=== PATIENT | female | born 1965 | race Caucasian/White ===

== ENCOUNTER → 2023-06-07 11:00 | Outpatient (REF) | payer OTHER, SELFPAY | LOC: PAVMRI 11:00 | PROVIDERS: ATTENDING PHYSICIAN Orthopaedic Surgery; FAMILY PHYSICIAN Family Medicine | DX: M25.551 Pain in right hip (principal) | CPT/HCPCS: 72070; 72100 ==

== ENCOUNTER 2024-02-08 16:02 | Emergency (ER) | payer OTHER, SELFPAY ==
--- NOTE | 2024-02-08 16:57 | ED.GENMED ---
History of Present Illness
General
Chief Complaint: Prescription Refill
Source: patient
Time Seen by Provider: 02/08/24 16:32
History of Present Illness
History of Present Illness:
58-year-old female who presents because she ran out of her diazepam. She saw her pain management physician who writes her pain medications and who also advised her primary doctor to refill her benzodiazepines. She states this is the routine that
they have or her primary care doctor writes for diazepam and the plate painter raise her narcotics. She states she has been doing this for 7 years but for some reason the primary doctor did not send in the prescription. The insurance
company and the pain medicine specialist were working to try to get it but they could not get the prescription and she has missed the last 3 doses. She states that she is confident she will get it filled on Saturday and just needs to be held over.
She is complaining of muscle spasm.
Past History
Past History
ED Past Medical History: Other (Seasonal allergies) and Other (chronic back pain)
Social History
Tobacco: Non-smoker
Living: with family
Phy Exam
Physical Exam
Physical Exam:
CONSTITUTIONAL Vital signs reviewed, Patient alert and oriented to person, place and time. Well-appearing
HEAD atraumatic, normocephalic.
EYES eyelids normal to inspection, Extraocular muscles intact, Conjunctiva normal, Sclera normal.
NECK normal range of motion, Trachea midline, no jugular venous distention.
RESP no respiratory distress
BACK No obvious deformities
UPPER EXTREMITY Gross Range of motion normal, gross motor strength normal
LOWER EXTREMITY Gross range of motion normal, Gross motor strength normal
NEURO Speech normal, No focal motor deficits include, [place] coma scale 15, Memory normal, Cranial Nerves intact to screening exam.
SKIN Skin warm, dry, and normal in color.
PSYCHIATRIC Patient oriented to person place and time, Normal affect.
Course
Orders/Labs/Results
Orders:
Orders
02/08/24 16:55
Diazepam [Valium] 5 mg PO NOW STA
Vital Signs
Initial and Last Documented VS:
Initial Vital Signs
Temp Pulse Resp Pulse Ox
97.9 F 90 18 95
02/08/24 16:06 02/08/24 16:06 02/08/24 16:06 02/08/24 16:06
Last Documented Vital Signs
Temp Pulse Resp Pulse Ox
97.9 F 90 18 95
02/08/24 16:06 02/08/24 16:06 02/08/24 16:06 02/08/24 16:06
MDM/Problems Addressed
MDM/Problems Addressed:
Chronic pain, chronic benzodiazepine dependence, acute mild benzodiazepine withdrawal
*Pulse Oximetry
Patient hypoxic: no
*Critical Care Note
Total Time (30-74mins, 75-104mins- exclusive of procedures): Not Applicable
Data Reviewed
Source: patient
Patient Management
Escalation/DeEscalation of care consider admission/obs:
PDMP reviewed. She has been very steady with her medication refills until this refill. I do feel it is safe to refill her until Saturday only.
ED Attending Note
-
Portions of this chart may have been created with voice recognition software.� Occasional wrong word or��sound alike� substitutions may have occurred due to the inherent limitations of voice recognition software.
Discharge Plan
Departure
Patient Disposition: Home (Routine Discharge)
Date of Disposition: 02/08/24
Time of Disposition: 17:06
Patient with high blood pressure during this ER visit?: Yes
Discharge Problem:
Muscle spasm, Chronic prescription benzodiazepine use
Instructions: BLOOD PRESSURE
Prescriptions:
New
diazepam 5 mg tablet
5 mg PO TID Qty: 8 0RF
No Action
gabapentin 600 mg Tablet
600 mg PO TID
polyethylene glycol 3350 [Miralax] 17 gram Powder In Packet
17 g PO DAILY
acetaminophen 500 mg Tablet
1,000 mg PO TID
diazepam 5 mg Tablet
5 mg PO TID
oxycodone 10 mg Tablet
10 mg PO TID
insulin degludec [Tresiba FlexTouch U-200] 200 unit/mL (3 mL) Insulin Pen
32 unit SC HS
Jardiance 25 mg Tablet
25 mg PO DAILY
cephalexin 500 mg capsule
500 mg PO BID 5 Days Qty: 10 0RF
Activity Restrictions/Additional Instructions:
It is imperative that you follow-up with your doctor for further medication refills, as discussed.
Interventions
Interventions:
*Risk Screen - Suicide Last Done: 02/08/24 16:06
*General Assessment Last Done: 02/08/24 16:06
*Neglect/Abuse Screening Last Done: 02/08/24 16:06
*ED COVID-19 Vaccine History Last Done: 02/08/24 16:06
Discharge Date and Time
Print Language: BENGALI
[2024-02-08] MEDS: VALIUM 5 MG PO (17:08)
[2024-02-08 17:10] VITALS: BP 124/87
== END 2024-02-08 17:24 | disposition home or self-care (01) ==
LOC: EMR 16:02
PROVIDERS: EMERGENCY PHYSICIAN Emergency Medicine; FAMILY PHYSICIAN Family Medicine
DX: M62.838 Other muscle spasm (principal); Z79.899 Other long term (current) drug therapy; G89.29 Other chronic pain; F13.239 Sedative, hypnotic or anxiolytic dependence with withdrawal, unspecified
CPT/HCPCS: 99282

== ENCOUNTER 2024-11-07 20:28 | Emergency (ER) | payer SELFPAY ==
[2024-11-07 20:42] VITALS: BP 184/108
[2024-11-07 21:34] VITALS: BMI 41.2
[2024-11-07 21:35] VITALS: BP 148/92
--- NOTE | 2024-11-07 21:38 | EDRN ---
when this [employer] asked the pt why she is here in the ER tonight, the pt stated 'my friend who I live with said tonight I am more stressed than normal because I have not been taking my oxycodone and he thought I needed to be evaluated.' the pt stated
'if he had not made me come to the ER tonight, I would not be here right now.' the pt stated her oxycodone prescription is due to be refilled tomorrow morning. the pt stated she last had her oxycodone 2 days ago.
--- NOTE | 2024-11-07 22:38 | ED.GENMED ---
History of Present Illness
General
Chief Complaint: Back Pain
Time Seen by Provider: 11/07/24 21:49
History of Present Illness
History of Present Illness:
59-year-old female with history of chronic back pain presenting to the emergency department because she ran out of her oxycodone. Patient reports that she has a refill for the morning time, however ran out 2 days ago of her oxycodone which she
takes twice daily. She has been taking the oxycodone for right upper back pain. She is currently in physical therapy for the pain. Denies any new concerning features. Denies weakness or numbness to extremities. Denies fever. She is due to get
her new prescription in the morning time. Denies additional acute medical complaints
Past History
Past History
ED Past Medical History: Other (Seasonal allergies) and Other (chronic back pain)
Social History
Tobacco: Non-smoker
Living: with family
Phy Exam
Physical Exam
Physical Exam:
General: Well-appearing, no clinical signs of dehydration, nontoxic and in no acute distress
HEENT: protecting airway
Neck: appears supple
CV: Normal heart rate
Resp: No accessory muscle use, no increased work of breathing
Abd: No distention
Extremities: No deformities, no swelling. Generalized tenderness to the right thoracic upper musculature. No overlying skin changes.
Neuro: alert, no focal neurologic deficit
: deferred
Rectal: deferred
Psych: Normal affect
Skin: Intact
Course
Orders/Labs/Results
Orders:
Orders
11/07/24 22:30
Oxycodone/Acetaminophen [Percocet 5/325] 1 tablet PO NOW STA
11/07/24 22:31
Oxycodone/Acetaminophen [Percocet 5/325] 1 tablet PO NOW STA
Vital Signs
Initial and Last Documented VS:
Initial Vital Signs
Temp Pulse Resp BP Pulse Ox
98.8 F 93 18 184/108 98
11/07/24 20:42 11/07/24 20:42 11/07/24 20:42 11/07/24 20:42 11/07/24 20:42
Last Documented Vital Signs
Temp Pulse Resp BP Pulse Ox
98.8 F 85 18 148/92 98
11/07/24 20:42 11/07/24 21:35 11/07/24 21:35 11/07/24 21:35 11/07/24 22:38
MDM/Problems Addressed
MDM/Problems Addressed:
59-year-old female with history of chronic back pain presenting to the emergency department for acute on chronic pain. Vital signs are significant for high blood pressure, however resolved without intervention.
On exam patient is resting comfortably, no acute distress or discomfort. Benign examination of the back, mild musculoskeletal tenderness to the upper back. No concerning features on exam. No weakness, no numbness, patient is nontoxic, afebrile
without concern for infectious component. Patient notes that her pain has been increased because she is out of her oxycodone for the past 2 days. Did look at the PDMP, patient had 60 tablets prescribed about a month ago. Her new prescription is
ready tomorrow morning. Will provide a dose of oxycodone in the ER and 1 dose for the morning time. Otherwise feel stable for discharge. Return precautions discussed.
*Pulse Oximetry
SaO2: 98
Oxygen Mode of Delivery: Room air
*Critical Care Note
Total Time (30-74mins, 75-104mins- exclusive of procedures): Not Applicable
ED Attending Note
-
Portions of this chart may have been created with voice recognition software.� Occasional wrong word or��sound alike� substitutions may have occurred due to the inherent limitations of voice recognition software.
Discharge Plan
Departure
Patient Disposition: Home (Routine Discharge)
Date of Disposition: 11/07/24
Time of Disposition: 22:38
Patient with high blood pressure during this ER visit?: Yes
Condition: Good
Discharge Problem:
Chronic back pain
Instructions: Upper Back Pain (DC), BLOOD PRESSURE
Prescriptions:
No Action
gabapentin 600 mg Tablet
600 mg PO TID
polyethylene glycol 3350 [Miralax] 17 gram Powder In Packet
17 g PO DAILY
acetaminophen 500 mg Tablet
1,000 mg PO TID
diazepam 5 mg Tablet
5 mg PO TID
oxycodone 10 mg Tablet
10 mg PO TID
insulin degludec [Tresiba FlexTouch U-200] 200 unit/mL (3 mL) Insulin Pen
32 unit SC HS
Jardiance 25 mg Tablet
25 mg PO DAILY
cephalexin 500 mg capsule
500 mg PO BID 5 Days Qty: 10 0RF
diazepam 5 mg tablet
5 mg PO TID Qty: 8 0RF
Referrals:
Kiara Smith MD [Family Provider]
Activity Restrictions/Additional Instructions:
You were seen in the emergency department for back pain
You were given your home medication
Please follow-up closely with your primary care physician.
Return to the emergency department for any worsening of your symptoms, or any development of chest pain, difficulty breathing, abdominal pain with persistent vomiting and inability to tolerate food or liquid by mouth (concern for dehydration),
weakness, headache or confusion, fever greater than 100.4, or any additional symptoms that are concerning to you.
Thank you for choosing [facility].
Interventions
Interventions:
*Risk Screen - Suicide Last Done: 11/07/24 20:42
*General Assessment Last Done: 11/07/24 20:42
*Neglect/Abuse Screening Last Done: 11/07/24 20:42
*ED- Fall Risk Assessment Last Done: 11/07/24 21:34
*ED COVID-19 Vaccine History Last Done: 11/07/24 21:34
ED-Musculoskeletal Assessment Last Done: 11/07/24 21:40
Discharge Date and Time
Print Language: EMIRATI
[2024-11-07] MEDS: PERCOCET 5/325 1 TABLET PO ×2 (22:39→22:40)
== END 2024-11-07 22:48 | disposition home or self-care (01) ==
LOC: EMR 20:28
PROVIDERS: EMERGENCY PHYSICIAN Student in an Organized Health Care Education/Training Program; FAMILY PHYSICIAN Family Medicine
DX: G89.29 Other chronic pain (principal); M54.6 Pain in thoracic spine
CPT/HCPCS: 99283

== ENCOUNTER 2024-12-12 12:56 | Emergency (ER) | payer OTHER, SELFPAY ==
[2024-12-12 13:00] VITALS: BP 165/107
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
--- NOTE | 2024-12-12 14:20 | EDRN ---
Received patient sitting in the chair. Patient refusing to sit on stretcher. Patient angrily stated 'There's nothing wrong with me. I don't know why I am here.' Patient's friend Nestor began to explain to why he brought the patient
here today. Patient interrupting Nestor numerous times saying'He's making that up. I had a history of bipolar many many many decades ago. I am a chronic pain management patient and my medications have been lowered. My doctor told me to stop taking
some of them.' Patient easily agitated when Nestor was speaking about episodes that occurred in his home. Patient insisiting 'There's nothing wrong with me'. Explained to patient that this RN would call the foundry worker apprentice and see when they would be
over to talk to her. Patient angrily stated 'I don't need to see them. I keep telling you that there's nothing wrong with me. I am not bipolar. I was that many years ago.' Spoke to Crisis and will be over to see the patient.
Patient walked outside and came back in. Explained to the patient that she could not leave patient stated 'There's no reason for me to be here. There's nothing wrong with me. Nestor and his family are the ones with a problem. I just moved the car
closer.'
Crisis in speaking to patient. Patient angry with foundry worker apprentice Petra. Patient left the ED and refused to come back inside. notified. Nestor speaking to Petra. Nestor was given a list of resources.
== END 2024-12-12 15:00 | disposition home or self-care (01) ==
LOC: EMR 12:56
PROVIDERS: EMERGENCY PHYSICIAN Emergency Medicine; FAMILY PHYSICIAN Family Medicine
DX: F63.81 Intermittent explosive disorder (principal); F31.9 Bipolar disorder, unspecified; G89.29 Other chronic pain; E11.9 Type 2 diabetes mellitus without complications
CPT/HCPCS: 99283

== ENCOUNTER 2025-01-13 23:36 | Emergency (ER) | payer OTHER, SELFPAY ==
[2025-01-13 23:44] VITALS: BP 167/101
[2025-01-14 00:40] VITALS: BMI 40.0
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
[2025-01-14] MEDS: PERCOCET 5/325 1 TABLET PO (02:15)
[2025-01-14] MEDS: NEURONTIN 400 MG PO (02:18)
[2025-01-14] MEDS: MOTRIN 600 MG PO (02:19)
--- NOTE | 2025-01-14 09:36 | CM ---
Received CM consult. I met with Florina bedside in ED. She was walking around the room and sat in a chair to speak with me. We discussed her housing situation, she told me she was living 'with her family' but had an argument with her best friend Nestor,
who she lives with and she left and went to a motel. She has been staying at a motel in [place] and traveling to do conferences. She was in [place] last week and stayed in a hotel there. She told me she cannot go back home until she sees a
psychiatrist. Florina told me she was diagnosed as bipolar over 20 years ago but is not on any medications for that currently. She does have a therapist and there is a psychiatrist in the practice, she spoke to that person briefly yesterday but only
about an unpaid bill.
Florina frequently goes off topic, redirected her to discuss what she needed to be discharged from ED. She told me she will be getting money tomorrow and can pay her bills. She again told me she needs to see a psychiatrist before she can go home. She
used to live in [place] but for the past 2 years has been living with Nestor and his family in [place]. She toll me she sleeps on a pull out couch and does feel safe there but has had arguments with Nestor and his daughter. I gave her information for
[facility], shelters in the area and [facility] community resource card. She again told me she can go back home (was there yesterday for dinner) if she sees a psychiatrist. She is agreeable to speak to [place] at [facility] and hopes to get
a referral for a psychiatrist.
Discussed with Dr Pollock, she will be discharged from ED to go to Crisis and speak with them. Pt agreeable to the plan and is awaiting discharge instructions.
== END 2025-01-14 10:01 | disposition other institution (70) ==
LOC: EMR 23:36
PROVIDERS: EMERGENCY PHYSICIAN Student in an Organized Health Care Education/Training Program
DX: G89.29 Other chronic pain (principal); M54.9 Dorsalgia, unspecified; Z59.819 Housing instability, housed unspecified; Z59.89 Other problems related to housing and economic circumstances
CPT/HCPCS: 99283

== ENCOUNTER 2025-04-07 20:19 | Emergency (ER) | payer OTHER, SELFPAY ==
[2025-04-07 20:25] VITALS: BP 145/95
--- NOTE | 2025-04-07 22:26 | ED.GENMED ---
History of Present Illness
General
Chief Complaint: Back Pain
Time Seen by Provider: 04/07/25 22:26
History of Present Illness
History of Present Illness:
FOCUSED PAST MEDICAL HISTORY
- Diabetes, bipolar, chronic back pain
REVIEW OF OLD RECORDS
- I reviewed records, the patient was seen by crisis as well as myself
Note:
CHIEF COMPLAINT(S)
Muscle spasms in the upper body.
HISTORY OF PRESENT ILLNESS
The patient is a 59-year-old female who presents with muscle spasms primarily affecting her upper body, which started today around 1 PM. These symptoms followed a period of six days where she was engaged in physically strenuous activity, assisting
in cleaning out a house. She reports having a day of rest yesterday, followed by the onset of spasms today. She describes the spasms as being concentrated in the torso. The patient has a history of spinal surgery affecting T3-6 and L3-S1. She has
not taken any medication recently, having stopped four months ago from oxycodone 5 mg and diazepam 5 mg, which she had been taking for an extended period. She mentions that she called her automatic paint sprayer operator for advice today. The patient
recalls previous benefit from diazepam and cyclobenzaprine (Flexeril) prior to her spine surgery. She shows willingness to try Flexeril again.
ADDITIONAL HISTORY OBTAINED FROM SOURCES OTHER THAN THE PATIENT
The patients boyfriend drove her to the hospital, indicating she did not drive herself.
PAST MEDICAL AND SURIGICAL HISTORY
The patient has a noted history of spinal surgeries involving the thoracic and lumbar regions (T3-6 and L3-S1).
MEDICATIONS
The patient was previously on oxycodone 5 mg and diazepam 5 mg but discontinued their use four months ago.
PHYSICAL EXAM
General: Alert, no acute distress. Appears comfortable.
Skin: Warm, dry.
Head: Normocephalic, atraumatic.
Neck: Supple, trachea midline.
Eye, Ears, Nose, Mouth and Throat: Oral mucosa moist.
Cardiovascular: Normal peripheral perfusion, No edema.
Respiratory: Respirations are non-labored.
Gastrointestinal: Abdomen nondistended.
Back: Normal range of motion, Normal alignment. No midline T or L-spine tenderness, surgical scar noted to the cervical and lumbar regions
Musculoskeletal: Normal ROM, normal strength.
Neurological: Alert and oriented to person, place, time, and situation, No focal neurological deficit observed.
Psychiatric: Cooperative, appropriate mood & affect.
PLAN
- Administer an intramuscular injection of ketorolac (Toradol) in the emergency department for immediate pain relief.
- Provide a sample dose of cyclobenzaprine (Flexeril) to assess the effectiveness and prescribe if beneficial.
- The patient will receive a prescription for Flexeril.
- The patient will be discharged after administration of medication.
DIFFERENTIAL DIAGNOSIS
The Differential Diagnosis includes, in no particular order and is not limited to:
1. Muscular strain
2. Myofascial pain syndrome
3. Thoracic spine radiculopathy
4. Spinal stenosis
5. Disc herniation
6. Osteoarthritis
7. Polymyalgia rheumatica
8. Fibromyalgia
9. Spondylolisthesis
10. Drug withdrawal related muscle tension or spasm.
SUMMARY OF ENCOUNTER
The patient, a 59-year-old female, presented to the emergency department with muscle spasms in the upper body. These symptoms developed following six days of physically strenuous activity and a day of rest. Given her history of spinal surgery, she
was assessed for potential causes of muscle spasms. The emergency treatment plan involved alleviating her muscle spasm symptoms. Given her past medication history with oxycodone and diazepam, it was decided to avoid these and instead administer
ketorolac for immediate relief, along with a trial of cyclobenzaprine.
DISPOSITION
Discharge.
ASSESSMENT
The patients symptoms are indicative of muscle spasms, likely exacerbated by recent physical exertion.
EMERGENCY TREATMENTS ADMINISTERED
Intramuscular injection of ketorolac.
PLAN
- Administer ketorolac in the emergency department for immediate pain relief.
- Provide and prescribe cyclobenzaprine for ongoing management of muscle spasms.
- Recommend NSAIDs as needed for pain control.
PATIENT EDUCATION AND COUNSELING
The patient was educated about the use of cyclobenzaprine and was advised to take NSAIDs as needed if muscle spasms persist.
FOLLOW-UP INSTRUCTIONS
The patient was advised to contact her primary care doctor or automatic paint sprayer operator for follow-up if symptoms persist or worsen.
MEDICATION RECONCILIATION
- Ketorolac (Toradol) administered as an intramuscular injection in the emergency department.
- Cyclobenzaprine (Flexeril) prescribed for muscle spasm management.
MEDICAL DECISION MAKING
- Number and Complexity of Problems Addressed: Chronic conditions affecting care include history of spinal surgeries (T3-6 and L3-S1).
- DDx list: Muscular strain, Myofascial pain syndrome, Thoracic spine radiculopathy, Spinal stenosis, Disc herniation, Osteoarthritis, Polymyalgia rheumatica, Fibromyalgia, Spondylolisthesis, Drug withdrawal related muscle tension or spasm.
- Data:
- Category 2: Input from an independent historian was obtained, as the patients boyfriend provided transport to the hospital.
- Risk: Prescription medication was prescribed (cyclobenzaprine), and prior narcotic use was avoided for long-term safety.
DIAGNOSIS
Muscle spasm (ICD-10: M62.830).
Past History
Past History
ED Past Medical History: Other (Seasonal allergies) and Other (chronic back pain)
Social History
Tobacco: Non-smoker
Living: with family
Phy Exam
Physical Exam
Physical Exam:
See HPI
Course
Orders/Labs/Results
Orders:
Orders
04/07/25 22:34
Cyclobenzaprine HCl [Flexeril] 10 mg PO NOW STA
Ketorolac [Toradol] 30 mg IM NOW STA
Vital Signs
Initial and Last Documented VS:
Initial Vital Signs
Temp Pulse Resp BP Pulse Ox
36.5 C 88 16 145/95 98
11/19/25 20:25 04/07/25 20:25 04/07/25 20:25 04/07/25 20:25 04/07/25 20:25
Last Documented Vital Signs
Temp Pulse Resp BP Pulse Ox
36.5 C 88 16 145/95 98
04/07/25 20:25 04/07/25 20:25 04/07/25 20:25 04/07/25 20:25 04/07/25 22:28
*Pulse Oximetry
SaO2: 98
Oxygen Mode of Delivery: Room air
Patient hypoxic: no
*Critical Care Note
Total Time (30-74mins, 75-104mins- exclusive of procedures): Not Applicable
ED Attending Note
-
Portions of this chart may have been created with voice recognition software.� Occasional wrong word or��sound alike� substitutions may have occurred due to the inherent limitations of voice recognition software.
Discharge Plan
Departure
Patient Disposition: Home (Routine Discharge)
Date of Disposition: 04/07/25
Time of Disposition: 22:36
Patient with high blood pressure during this ER visit?: Yes
Discharge Problem:
Back pain
Instructions: Back Pain, BLOOD PRESSURE
Prescriptions:
New
cyclobenzaprine 10 mg tablet
10 mg PO BID PRN (Reason: pain) Qty: 20 0RF
No Action
gabapentin 600 mg Tablet
600 mg PO TID
diazepam 5 mg Tablet
5 mg PO BID
oxycodone 5 mg Tablet
5 mg PO BID
Valium
5 mg PO BID
Referrals:
Kiara Smith MD [Family Provider]
Activity Restrictions/Additional Instructions:
Follow-up with your primary care physician. Try to limit the use of Flexeril. We also gave you a shot of Toradol. If this helps you consider taking [id number] Motrin. I recommend 3-4 [id number] ibuprofen (Motrin) every 8 hours with
food for a few days. Return here if worse.
Interventions
Interventions:
*Risk Screen - Suicide Last Done: 04/07/25 20:25
*General Assessment Last Done: 04/07/25 22:44
*Neglect/Abuse Screening Last Done: 04/07/25 20:25
*ED- Fall Risk Assessment Last Done: 04/07/25 22:38
*ED COVID-19 Vaccine History Last Done: 04/07/25 22:38
*ED Influenza Vaccine History Last Done: 04/07/25 22:38
*Nursing Disposition Last Done: 04/07/25 22:44
ED-Musculoskeletal Assessment Last Done: 04/07/25 22:38
Discharge Date and Time
Print Language: BELIZEAN
[2025-04-07] MEDS: TORADOL 30 MG IM (22:37)
[2025-04-07] MEDS: FLEXERIL 10 MG PO (22:38)
== END 2025-04-07 22:45 | disposition home or self-care (01) ==
LOC: EMR 20:19
PROVIDERS: EMERGENCY PHYSICIAN Emergency Medicine; FAMILY PHYSICIAN Family Medicine
DX: M54.9 Dorsalgia, unspecified (principal); G89.29 Other chronic pain; M62.838 Other muscle spasm; E11.9 Type 2 diabetes mellitus without complications
CPT/HCPCS: 96372; 99284